=== PATIENT | male | born 1955 | race Caucasian/White ===

== ENCOUNTER 2017-02-17 13:13 | Inpatient (IN) | payer OTHER ==
[~2017-02-17] VITALS: Ht 180.3 cm; Wt 95.5 kg
[2017-02-17 13:33] LABS: HEMATOCRIT 41.4 % (38.0-50.0); MCH 30.7 PG (29.0-34.0); MCHC 34.1 G/DL (30.0-36.0); MEAN PLAT.VOLUME 9.8 uM^3 (9.0-12.4); PLATELET COUNT 209 K/uL (156-360); RBC DIS.WIDTH-CV 12.8 % (11.8-14.6); RBC DIS.WIDTH-SD 42.1 % (39-53); WHITE BLOOD COUNT 8.7 K/uL (4.1-10.2)
[2017-02-17 13:49] LABS: CHLORIDE 107 mEq/L (99-109); POTASSIUM 3.8 mEq/L (3.7-5.4); SODIUM 142 mEq/L (136-147)
[2017-02-17 13:50] LABS: GLUCOSE 131 mg/dL (70-99)
[2017-02-17 13:52] LABS: ANION GAP 9 MEQ/L (2-14)
[2017-02-17 13:54] LABS: GFR ESTIMATE (CALCULATED) > 59 mL/min/
[2017-02-17 13:55] LABS: UREA NITROGEN (BUN) 11 mg/dL (9-23)
[2017-02-17 13:57] LABS: TROP-I INTERPRETATION POSITIVE; TROPONIN-I 0.83 ng/mL (0.0-0.30)
[2017-02-17 14:24] LABS: INTER. NORMALIZED RATIO 1.1; PROTHROMBIN TIME 10.9 (9.2-11.2); PTT 28.2 (25-32)
[2017-02-17 17:54] VITALS: BP 140/83
[2017-02-17 20:02] VITALS: BP 152/80
[2017-02-17 22:05] LABS: INTER. NORMALIZED RATIO 1.1; PROTHROMBIN TIME 11.4 (9.2-11.2)
[2017-02-17 22:07] LABS: PTT 97.2 (25-32)
[2017-02-17 22:18] LABS: TROP-I INTERPRETATION POSITIVE; TROPONIN-I 0.95 ng/mL (0.0-0.30)
[2017-02-17 23:30] VITALS: BP 170/99
[2017-02-18 04:26] VITALS: BP 150/96
[2017-02-18 05:50] LABS: HEMATOCRIT 43.2 % (38.0-50.0); MCH 30.1 PG (29.0-34.0); MCHC 33.6 G/DL (30.0-36.0); MCV 89.8 FL (86-99); MEAN PLAT.VOLUME 10.1 uM^3 (9.0-12.4); PLATELET COUNT 231 K/uL (156-360); RBC DIS.WIDTH-CV 12.8 % (11.8-14.6); RBC DIS.WIDTH-SD 41.9 % (39-53); RED BLOOD COUNT 4.81 M/uL (4.00-5.50); WHITE BLOOD COUNT 8.7 K/uL (4.1-10.2)
[2017-02-18 06:11] LABS: ALKALINE PHOSPHATASE 72 IU/L (3-129); ANION GAP 9 MEQ/L (2-14); CHLORIDE 107 MEQ/L (99-109); GFR ESTIMATE (CALCULATED) > 59 mL/min/; HDL CHOLESTEROL 49 MG/DL (Desirable>=40); LDL CHOLESTEROL 140 mg/dL (Desirable<100); NON-HDL CHOLESTEROL 157 mg/dL (Desirable<160); POTASSIUM 3.5 MEQ/L (3.7-5.4); SAMPLE HEMOLYSIS CHECK 0; SAMPLE ICTERIC CHECK 0; SAMPLE LIPEMIA CHECK 0; SODIUM 142 MEQ/L (136-147); TOTAL BILIRUBIN 0.6 MG/DL (0.0-1.0); TOTAL CHOLESTEROL 206 mg/dL (Desirable<200); TRIGLYCERIDES 83 MG/DL (Normal: <150); UREA NITROGEN (BUN) 9 mg/dL (9-23)
[2017-02-18 06:25] LABS: GLUCOSE 88 mg/dL (70-99)
[2017-02-18 06:29] LABS: TROP-I INTERPRETATION POSITIVE; TROPONIN-I 1.24 ng/mL (0.0-0.30)
[2017-02-18 09:00] VITALS: BP 138/85
[2017-02-18 12:41] VITALS: BP 159/90
[2017-02-18 16:36] VITALS: BP 117/65
[2017-02-18 19:00] VITALS: BP 148/84
[2017-02-18 20:24] LABS: INTER. NORMALIZED RATIO 1.1; PROTHROMBIN TIME 11.3 (9.2-11.2); PTT 58.4 (25-32)
[2017-02-18 23:00] VITALS: BP 140/63
[2017-02-19 03:00] VITALS: BP 170/84
[2017-02-19 07:08] LABS: Estimated Average Glucose 114 mg/dL (70-123); HEMOGLOBIN A1c (GLYCOHEMOGLOB) 5.6 % HGB (Below 5.7)
== END 2017-02-19 06:11 | disposition short-term general hospital (02) | DRG 282 ==
LOC: EME 13:13 → EDOF 16:30 → 4EAST 17:38
PROVIDERS: Emergency Medicine; Hospitalist
DX: I21.4 Non-ST elevation (NSTEMI) myocardial infarction (principal); I10 Essential (primary) hypertension; E78.5 Hyperlipidemia, unspecified
CPT/HCPCS: 71020; 80048; 80053; 80061; 83036; 84484; 85027; 85610; 85730; 93005; 99281; 99283